=== PATIENT | female | born 1985 | race Caucasian/White ===

== ENCOUNTER 2016-12-02 19:01 | Emergency (ER) | payer SELFPAY ==
--- NOTE | 2016-12-02 22:38 | ED ---
Lower Extremity - HPI Summary HPI Summary: 31F presents with left knee abrasion on Tuesday. [facility] and wound was irrigated and was prescribed keflex. the wound seemed to be improving until yesterday when there started to be some drainage from the wound and some redness around the wound. She denies any fevers. She did go swimming two days ago. She has not cleaned the wound since. She has limited ROM of the knee. She is not DM. She is new to the area and does not have a primary. - History of Current Complaint Chief Complaint: EDExtremityLower Stated Complaint: POSS LT KNEE INFECTION Time Seen by Provider: 12/02/16 22:03 Pain Intensity: 3 - Allergies/Home Medications Allergies/Adverse Reactions: Allergies Allergy/AdvReac Type Severity Reaction Status Date / Time No Known Allergies Allergy Verified 12/02/16 19:50 PMH/Surg Hx/FS Hx/Imm Hx Endocrine/Hematology History: Denies: Hx Anticoagulant Therapy Cardiovascular History: Denies: Hx Hypertension Infectious Disease History: No Infectious Disease History: Denies: Traveled Outside the [place] in Last 30 Days - Family History Known Family History: Positive: Cardiac Disease - Social History Alcohol Use: Weekly Substance Use Type: Reports: None Smoking Status (MU): Never Smoked Tobacco Review of Systems Negative: Fever Negative: Chest Pain Negative: Shortness Of Breath Positive: Rash All Other Systems Reviewed And Are Negative: Yes Physical Exam Triage Information Reviewed: Yes Vital Signs On Initial Exam: Initial Vitals Temp Pulse Resp BP Pulse Ox 98.8 F 60 16 102/62 96 12/02/16 19:50 12/02/16 19:50 12/02/16 19:50 12/02/16 19:50 12/02/16 19:50 Vital Signs Reviewed: Yes Appearance: Positive: Well-Appearing Skin: Positive: Other - 5cm by 6cm abrasion of left knee near lateral aspect of proximal tibia with dehiscence Head/Face: Positive: Normal Head/Face Inspection Eyes: Positive: Normal, Conjunctiva Clear Respiratory/Lung Sounds: Positive: Clear to Auscultation, Breath Sounds Present Cardiovascular: Positive: Normal, RRR Musculoskeletal: Positive: Limited @ - left knee due to pain, Other - joint is not red or warm. Negative: Edema Left - knee Neurological: Positive: Normal Psychiatric: Positive: Normal Diagnostics - Vital Signs Vital Signs Temp Pulse Resp BP Pulse Ox 12/02/16 22:04 98.9 F 54 16 86/61 100 12/02/16 19:52 98.8 F 77 16 102/62 98 12/02/16 19:50 98.8 F 60 16 102/62 96 - Laboratory Result Diagrams: 12/02/16 22:35 12/02/16 23:15 Lab Statement: Any lab studies that have been ordered have been reviewed, and results considered in the medical decision making process. Lower Extremity Course/Dx - Course Course Of Treatment: 31F presents with left knee abrasion on Tuesday. She was [facility] and wound was irrigated and was prescribed keflex. the wound seemed to be improving until yesterday when there started to be some drainage from the wound and some redness around the wound. She denies any fevers. She did go swimming two days ago. She has not cleaned the wound since. She has limited ROM of the knee. joint is not a septic joint as is not red or edema. has wound 5cm by 6cm on lateral aspect of proximal tibia. limited ROM with pain. labs normal. irrigated and debrided wound. on xray wound appears close to patella tendon so will have follow up with ortho. as has no primary advised to follow up with urgent care for a wound check in 2 days. got wound culture. will add bactrim on to keflex. patient understands and agrees with plan. - Diagnoses Differential Diagnosis/HQI/PQRI: Positive: Cellulitis, Other - abscess, dehsicence Provider Diagnoses: Abrasion of left knee Discharge - Discharge Plan Condition: Good Disposition: HOME Prescriptions: Sulfamethox/Trimethoprim DS* [Bactrim DS 800/160 TAB*] 1 tab PO BID #19 tab Patient Education Materials: Acute Wound Care (ED), Abrasion (ED) Referrals: [facility] [place] [facility] [Outside] Reji Cintron MD [Medical Doctor] - Additional Instructions: Continue keflex as prescribed Add bactrim twice a day for 10 days Clean area with soap and water twice a day and apply neosporin Keep covered Follow up with urgent care for a wound check in 2 days Follow up with ortho due to location of wound Return to ED if develop fevers, redness around wound spreads, or any new or worsening symptoms
[2016-12-02 23:01] LABS: Hematocrit 41 % (35-47); Hemoglobin 13.5 g/dl (12.0-16.0); Mean Corpuscular HGB Conc 33 g/dl (31-36); Mean Corpuscular Hemoglobin 31 pg (27-31); Mean Corpuscular Volume 94 fL (80-97); Mean Platelet Volume 9 um3 (7.4-10.4); Red Blood Count 4.33 10^6/ul (4.0-5.4); Red Cell Distribution Width 13 % (10.5-15); White Blood Count 5.9 10^3/ul (3.5-10.8)
[2016-12-02 23:39] LABS: Erythrocyte Sed Rate 16 mm/Hr (0-14)
[2016-12-02 23:46] LABS: Albumin 4.4 g/dL (3.2-5.2); BUN/Creatinine Ratio 19.6 (8-20); Calcium 9.6 mg/dL (8.6-10.3); EGFR African American 92.2 (>60); EGFR Non-African American 71.7 (>60); Globulin 2.8 g/dL (2-4); Potassium 3.7 mmol/L (3.5-5.0); Total Bilirubin 0.5 mg/dL (0.2-1.0); Total Protein 7.2 g/dL (6.4-8.9)
[2016-12-03] MEDS ORDERED: Sulfamethox/Trimethoprim DS 800/160* TAB PO ONE (00:16)
[2016-12-03 01:24] VITALS: BP 85/65
--- NOTE | 2016-12-03 07:35 | RAD ---
INDICATION: Left knee wound possible infection, foreign body. TECHNIQUE: 2 views of the left knee were obtained. FINDINGS: There is soft tissue defect and swelling which projects over the region of the midportion of the patellar tendon. No joint effusion, fracture or radiopaque foreign body is seen. IMPRESSION: SOFT TISSUE DEFECT AND SWELLING WHICH PROJECTS OVER THE PATELLAR TENDON. AN MRI OF THE KNEE WOULD BE HELPFUL IN FURTHER EVALUATION OF TENDON INJURY IF CLINICALLY NEEDED.
== END 2016-12-03 01:20 | disposition home or self-care (01) ==
LOC: ED 19:01
DX: S80.212D Abrasion, left knee, subsequent encounter (principal); X58.XXXD Exposure to other specified factors, subsequent encounter
CPT/HCPCS: 36415; 80053; 83605; 85025; 85652; 86141; 87040; 87070; 87205; 99283; A9270-GY

== ENCOUNTER 2017-01-05 21:59 | Emergency (ER) | payer OTHER ==
[2017-01-05 22:12] VITALS: BP 90/56
[2017-01-06] MEDS ORDERED: Acetaminophen TAB* 325 MG PO ONE (00:55)
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
--- NOTE | 2017-01-06 07:20 | RAD ---
INDICATION: Left hip injury. COMPARISON: There are no prior studies available for comparison. TECHNIQUE: An AP view of the pelvis and frontal and lateral views of the left hip were obtained. FINDINGS: The bones are in normal alignment. No fracture is seen. Joint spaces appear maintained. IMPRESSION: NO EVIDENCE FOR FRACTURE, IF THE PATIENT'S SYMPTOMS PERSIST RECOMMEND FOLLOW-UP IMAGING.
--- NOTE | 2017-01-06 07:22 | RAD ---
INDICATION: Left rib injury. COMPARISON: There are no prior studies available for comparison. TECHNIQUE: 4 views of the left ribs and dual-energy PA views of the chest were obtained. FINDINGS: No fracture or significant focal osseous abnormality is seen. The heart is within normal limits in size. The lungs are clear. There is no evidence for pneumothorax or pleural effusion. IMPRESSION: NO EVIDENCE FOR FRACTURE.
== END 2017-01-06 02:00 | disposition home or self-care (01) ==
LOC: ED 21:59
DX: S91.012A Laceration without foreign body, left ankle, initial encounter (principal); T14.8XXA Other injury of unspecified body region, initial encounter; V19.88XA Pedal cyclist (driver) (passenger) injured in other specified transport accidents, initial encounter; Y93.55 Activity, bike riding; Y92.9 Unspecified place or not applicable; M25.552 Pain in left hip
CPT/HCPCS: 99282; A9270-GY